=== PATIENT | female | born 1985 | race African-American/Black ===

== ENCOUNTER 2016-10-16 05:34 | Emergency (ER) | payer OTHER ==
[~2016-10-16 05:34] MED LIST: HYDR-3533 PO; IBUP600T26 PO
[2016-10-16 05:35] VITALS: BP 118/64; PULSE 92; RESP 16; TEMP 98.2; O2SAT 99
[2016-10-16] MEDS ORDERED: PREN29TA PO (05:56)
[2016-10-16] MEDS ORDERED: THIAMINE INJ 100 MG in SODIUM CHLORIDE 0.9% INJ 100 ML IV ONE (06:00)
[2016-10-16] MEDS ORDERED: ONDANSETRON HCL 4 MG/2 ML VIAL IV ONE (06:00)
[2016-10-16] MEDS ORDERED: DIPHENOXYLATE/ATROPINE 2.5 MG/0.025 MG TAB PO ONE (06:00)
[2016-10-16] MEDS ORDERED: SODIUM CHLOR 0.9% 1000 ML INJ 1,000 ML IV ONE ×2 (06:00)
--- NOTE | 2016-10-16 06:09 | PD ---
HPI Chief Complaint: GI Complaint Time Seen by Provider: 05:43 Travel History International Travel<30 days: No Contact w/Intl Traveler<30days: No History of Present Illness HPI So 31-year-old woman, 15 weeks , presents to the emergency department complaining of nausea diarrhea and lightheadedness. She states that she's had trouble with nausea and vomiting throughout her . Over the past 2 days she started to develop copious watery diarrhea, 4-5 episodes through the night. She is a little bit of lower abdominal cramping yesterday, improved today. No definite sick contacts. She did take a Z-Donnie for URI symptoms couple months ago. No report more recent antibiotic exposures. No other healthcare exposures. She is 5 para 4, 0, 0, 4. She had trouble with nausea and vomiting throughout all of her pregnancies. No recent unusual food. No travel. Review systems positive for feeling weak and lightheaded at times. No other complaints. History Past Medical History Medical History: Denies Significant Hx Tetanus Vaccination: Unknown Influenza Vaccination: No PNEUMOCCOCAL Vaccine (Year): 2 LMP: 07/03/2017 : 6 Para: 2 Dilation and Curettage (D&C): Yes Social History Alcohol Use: No Tobacco Use: No Allergies-Medications (Allergen,Severity, Reaction): Coded Allergies: Ambien (Verified Allergy, Severe, Anaphylaxis, 10/16/16) Tramadol (Verified Allergy, Severe, Anaphylaxis, 10/16/16) Reported Meds & Prescriptions Reported Meds & Active Scripts Active Reported Plus Iron 29-1 mg ( Vit-Iron Carbonyl) 1 Tab Tab 1 Tab PO DAILY Review of Systems Except as stated in HPI: all other systems reviewed are Neg Physical Exam Narrative GENERAL: Well-appearing 31 year-old woman, no acute distress. No active vomiting. SKIN: Warm and dry. HEAD: Atraumatic. Normocephalic. CARDIOVASCULAR: Regular rate and rhythm. No murmur appreciated. RESPIRATORY: No accessory muscle use. Clear to auscultation. Breath sounds equal bilaterally. GASTROINTESTINAL: Abdomen soft, non-tender, nondistended. Hepatic and splenic margins not palpable. MUSCULOSKELETAL: No obvious deformities. No clubbing. No cyanosis. No edema. NEUROLOGICAL: Awake and alert. No obvious cranial nerve deficits. Motor grossly within normal limits. Normal speech. PSYCHIATRIC: Appropriate mood and affect; insight and judgment normal. Data Data Last Documented VS Vital Signs Date Time Temp Pulse Resp B/P Pulse Ox O2 Delivery O2 Flow Rate FiO2 10/16/16 05:35 98.2 92 16 118/64 99 Room Air Orders Complete Blood Count With Diff (10/16/16 05:50) Comprehensive Metabolic Panel (10/16/16 05:50) Iv Access Insert/Monitor (10/16/16 05:50) Ed Poc Ultrasound (10/16/16 ) Sodium Chlor 0.9% 1000 Ml Inj (Ns 1000 M (10/16/16 06:00) Sodium Chlor 0.9% 1000 Ml Inj (Ns 1000 M (10/16/16 06:00) Ondansetron Inj (Zofran Inj) (10/16/16 06:00) Thiamine Inj (Thiamine Inj) (10/16/16 06:00) Diphenoxylate/Atropine Tab (Lomotil Tab) (10/16/16 06:00) Labs Laboratory Tests Test 10/16/16 06:05 White Blood Count 7.7 TH/MM3 Red Blood Count 3.71 MIL/MM3 Hemoglobin 11.4 GM/DL Hematocrit 33.1 % Mean Corpuscular Volume 89.2 FL Mean Corpuscular Hemoglobin 30.7 PG Mean Corpuscular Hemoglobin 34.4 % Concent Red Cell Distribution Width 12.6 % Platelet Count 209 TH/MM3 Mean Platelet Volume 7.7 FL Neutrophils (%) (Auto) 64.7 % Lymphocytes (%) (Auto) 24.6 % Monocytes (%) (Auto) 6.8 % Eosinophils (%) (Auto) 3.3 % Basophils (%) (Auto) 0.6 % Neutrophils # (Auto) 5.0 TH/MM3 Lymphocytes # (Auto) 1.9 TH/MM3 Monocytes # (Auto) 0.5 TH/MM3 Eosinophils # (Auto) 0.3 TH/MM3 Basophils # (Auto) 0.0 TH/MM3 CBC Comment DIFF FINAL Differential Comment Sodium Level 139 MEQ/L Potassium Level 3.2 MEQ/L Chloride Level 104 MEQ/L Carbon Dioxide Level 26.9 MEQ/L Anion Gap 8 MEQ/L Blood Urea Nitrogen 5 MG/DL Creatinine 0.59 MG/DL Estimat Glomerular Filtration 142 ML/MIN Rate Random Glucose 93 MG/DL Calcium Level 8.1 MG/DL Total Bilirubin 0.2 MG/DL Aspartate Amino Transf 9 U/L (AST/SGOT) Alanine Aminotransferase 15 U/L (ALT/SGPT) Alkaline Phosphatase 45 U/L Total Protein 6.7 GM/DL Albumin 3.0 GM/DL [facility] Medical Decision Making Medical Screen Exam Complete: Yes Emergency Medical Condition: Yes Interpretation(s) LABS: CBC is unremarkable, mild anemia. CMP is generally unremarkable. Differential Diagnosis Dehydration, diarrhea, vomiting, cramping, other Narrative Course Medical decision making 30 year-old woman with nausea vomiting of , could've by now watery diarrhea. No definite sick contacts. No significant risk factors for C. difficile. Patient looks otherwise well. We'll give her a dose of Lomotil here. She is asking for prescription for Phenergan. She had been taking Reglan with feels like it's not helping her. We'll give her IV fluid rehydration, check labs. Procedures Procedure Narrative Point of care ultrasound: Focus transabdominal ultrasound performed by me for the purpose of evaluating for intrauterine . Mcdermott intrauterine was identified. Approximately 15 weeks by biparietal diameter. Good heart movement. Good motion. heart rate about 148. Diagnosis Primary Impression: Nausea & vomiting Qualified Code: R11.2 - Non-intractable vomiting with nausea, unspecified vomiting type Additional Impression: Diarrhea Qualified Code: R19.7 - Diarrhea, unspecified type Patient Instructions: General Instructions Additional Instructions: Use promethazine as needed for nausea or vomiting. Take Lomotil if needed for watery diarrhea. Follow-up with your fire pilot in the next 2-3 days. Return to the emergency department for any worsening belly pain, fevers, bloody diarrhea, worsening lightheadedness or dizziness, or any other new or worsening symptoms. Med/Other Pt SpecificInfo: Prescription(s) given Scripts Diphenoxylate-Atropine (Lomotil)2.5-0.025 Mg Tab1 Tab PO Q6H PRN (DIARRHEA) #6 TAB Ref 0 Prov:Hasmukh Noel MD 10/16/16 Promethazine (Phenergan)25 Mg Tab25 Mg PO Q6H PRN (Nausea/Vomiting) #12 TAB Ref 0 Prov:Hasmukh Noel MD 10/16/16 Disposition: 01 DISCHARGE HOME Condition: Stable Hasmukh Noel MD Oct 16, 2016 06:09
[2016-10-16 06:14] LABS: BASOPHIL % 0.6 % (0.0-2.0); EOSINOPHIL # 0.3 TH/MM3 (0-0.4); EOSINOPHIL % 3.3 % (0.0-4.0); HEMATOCRIT 33.1 % (35.0-46.0); HEMO FLAGS DIFF FINAL; LYMPH % 24.6 % (9.0-44.0); LYMPHOCYTE # 1.9 TH/MM3 (1.0-4.8); MEAN CELL VOLUME 89.2 FL (80.0-100.0); MEAN CORPUSCULAR HEMOGLOBIN 30.7 PG (27.0-34.0); MEAN CORPUSCULAR HGB CONC 34.4 % (32.0-36.0); MONO % 6.8 % (0.0-8.0); NEUT % 64.7 % (16.0-70.0); PLATELET COUNT 209 TH/MM3 (150-450); RED BLOOD COUNT 3.71 MIL/MM3 (4.00-5.30); RED CELL DISTRIBUTION WIDTH 12.6 % (11.6-17.2); WHITE BLOOD COUNT 7.7 TH/MM3 (4.0-11.0)
[2016-10-16 06:39] LABS: ANION GAP 8 MEQ/L (5-15); AST (GOT) 9 U/L (15-37); BICARBONATE 26.9 MEQ/L (21.0-32.0); BLOOD UREA NITROGEN 5 MG/DL (7-18); CHLORIDE 104 MEQ/L (98-107); GLOMERULAR FILTRATION RATE 142 ML/MIN (>89); POTASSIUM 3.2 MEQ/L (3.5-5.1); SODIUM (NA) 139 MEQ/L (136-145)
[2016-10-16 06:42] LABS: ALKALINE PHOSPHATASE 45 U/L (45-117); ALT (GPT) 15 U/L (10-53); TOTAL BILIRUBIN ADULT 0.2 MG/DL (0.2-1.0)
[2016-10-16] MEDS ORDERED: PROM25TA5 PO (06:47)
[2016-10-16] MEDS ORDERED: LOMO2.5T PO (06:47)
[2016-10-29] MEDS ORDERED: MICO1CRE2 VAGINAL (15:38)
[2016-11-26] MEDS ORDERED: PREN1PAK2 PO (09:00)
== END 2016-10-16 07:02 | disposition home or self-care (01) ==
LOC: NEPE 05:34
DX: O21.9 Vomiting of pregnancy, unspecified (principal); O26.892 Other specified pregnancy related conditions, second trimester; R19.7 Diarrhea, unspecified; R42 Dizziness and giddiness; Z3A.15 15 weeks gestation of pregnancy
CPT/HCPCS: 80053; 85025; 96374; 96375; 99284; J2405; J3411; J7030

== ENCOUNTER → 2016-11-13 | Outpatient (CLI) | payer OTHER ==
[~2016-11-13] MED LIST changes: +BENZ100 PO; -HYDR-3533 PO; -IBUP600T26 PO; +LOMO2.5T PO; +MICO1CRE2 VAGINAL; +PREN1PAK2 PO; +PREN29TA PO; +PROM25TA5 PO; +ZITHTAB PO
== END ==
LOC: HPND 08:29
PROVIDERS: ATTEND Obstetrics & Gynecology
DX: O09.292 Supervision of pregnancy with other poor reproductive or obstetric history, second trimester (principal); O98.512 Other viral diseases complicating pregnancy, second trimester; O99.012 Anemia complicating pregnancy, second trimester; O09.32 Supervision of pregnancy with insufficient antenatal care, second trimester
CPT/HCPCS: 76811

== ENCOUNTER 2016-11-22 17:31 | Emergency (ER) | payer OTHER ==
[~2016-11-22] VITALS: Ht 165.1 cm; Wt 67.0 kg
[~2016-11-22 17:31] MED LIST changes: -BENZ100 PO; -PREN1PAK2 PO; -ZITHTAB PO
[2016-11-22 17:34] VITALS: BP 111/66; PULSE 92; RESP 16; TEMP 98.8; O2SAT 98
[2016-11-22] MEDS ORDERED: ZITHTAB PO (17:48)
[2016-11-22] MEDS ORDERED: BENZ100 PO (17:48)
--- NOTE | 2016-11-22 17:48 | PD ---
HPI . congestion x 2 days Chief Complaint: Cold / Flu Symptoms Time Seen by Provider: 17:41 Travel History International Travel<30 days: No Contact w/Intl Traveler<30days: No Traveled to known affect area: No History of Present Illness HPI 31-year-old female with no significant past medical history here with complaints of cough and congestion for 2 days. Patient tells me that her head feels full and she has facial pressure. She also complains of a dry cough. It is more common at night. She denies any fever or chills. She denies any sick contacts. Her primary care provider is Dr. Middleton. She is allergic to Ambien and tramadol. PFSH Past Medical History Blood Disorders: No Anxiety: No Depression: No Cancer: No Cardiovascular Problems: No Diabetes: No Diminished Hearing: No Endocrine: No Glaucoma: No Genitourinary: No Hepatitis: No Hiatal Hernia: No Hypertension: No Immune Disorder: No Musculoskeletal: No Neurologic: No Psychiatric: No Reproductive: Yes (MISCARRIAGE 2007) Respiratory: No Thyroid Disease: No PNEUMOCCOCAL Vaccine (Year): 2 : 6 Para: 2 Miscarriage: 2 : 2 Dilation and Curettage (D&C): Yes Past Surgical History Abdominal Surgery: No AICD: No Cardiac Surgery: No Ear Surgery: No Endocrine Surgery: No Eye Surgery: No Genitourinary Surgery: No Gynecologic Surgery: Yes (D&C X2 ) Joint Replacement: No Oral Surgery: No Pacemaker: No Thoracic Surgery: No Other Surgery: Yes Social History Alcohol Use: No Tobacco Use: No Substance Use: No Allergies-Medications (Allergen,Severity, Reaction): Coded Allergies: Ambien (Verified Allergy, Severe, Anaphylaxis, 11/22/16) Tramadol (Verified Allergy, Severe, Anaphylaxis, 11/22/16) Reported Meds & Prescriptions Reported Meds & Active Scripts Active Tessalon Perles (Benzonatate) 100 Mg Cap 100 Mg PO TID PRN Zithromax Z-Donnie (Azithromycin) 250 Mg Dspk 250 Mg PO DIRECTED 500 MG (2 tabs) day 1, then 1 tab days 2-5. Review of Systems General / Constitutional: No: Fever Eyes: No: Visual changes HENT: Positive: Congestion, No: Headaches Cardiovascular: No: Chest Pain or Discomfort Respiratory: Positive: Cough, No: Shortness of Breath Gastrointestinal: No: Abdominal Pain Genitourinary: No: Dysuria Musculoskeletal: No: Pain Skin: No Rash Neurologic: No: Weakness Psychiatric: No: Depression Endocrine: No: Polydipsia Hematologic/Lymphatic: No: Easy Bruising Physical Exam Narrative GENERAL: AAO x 3, no acute distress, Well-nourished, well-developed patient. SKIN: Warm and dry. No visible rashes or bruising. HEAD: Normocephalic and atraumatic. EYES: No scleral icterus. No injection or drainage. ENT: No nasal drainage noted. Mucous membranes pink. Airway patent. Frontal and maxillary sinus tenderness. Moderate postnasal drip. NECK: Supple, trachea midline. No JVD. CARDIOVASCULAR: Regular rate and rhythm without murmurs, gallops, or rubs. RESPIRATORY: Breath sounds equal bilaterally. No accessory muscle use. No rhonchi or rales. GASTROINTESTINAL: Abdomen soft, non-tender, nondistended. EXTREMITIES: No cyanosis or edema. BACK: Nontender without obvious deformity. No CVA tenderness. PSYCH: AAO x 3, normal affect. Data Data Last Documented VS Vital Signs Date Time Temp Pulse Resp B/P Pulse Ox O2 Delivery O2 Flow Rate FiO2 11/22/16 17:34 98.8 92 16 111/66 98 MDM Medical Decision Making Medical Screen Exam Complete: Yes Emergency Medical Condition: Yes Differential Diagnosis Acute sinusitis, acute bronchitis, less likely pneumonia Narrative Course 31-year-old female with no significant past medical history here with complaints of cough and congestion for 2 days. Patient tells me that her head feels full and she has facial pressure. She also complains of a dry cough. It is more common at night. She denies any fever or chills. She denies any sick contacts. Her primary care provider is Dr. Middleton. She is allergic to Ambien and tramadol. Patient seen and examined. Her symptoms and exam findings are consistent with acute sinusitis. I have discussed this with her. Advised that we will discharge her home with a Z-Donnie. She was advised to follow -up with primary care provider. I will also provide her with Shashi Swann for coughing. Patient verbalized understanding of instructions, questions were answered, and thanked me for their care. I advised them if their condition worsens, please return to the nearest emergency room for further care. Diagnosis Primary Impression: Acute sinusitis Qualified Code: J01.10 - Acute frontal sinusitis, recurrence not specified Patient Instructions: General Instructions, Sinusitis (ED) Additional Instructions: Please return to emergency department if your symptoms return or worsen. Follow up with your primary care provider. Take medications as prescribed. You can also use Claritin, Zyrtec or Rakel. Pick one and take for 7 days. Med/Other Pt SpecificInfo: Prescription(s) given Scripts Benzonatate (Tessalon Perles)100 Mg [id number] Mg PO TID PRN (COUGH) #20 CAP Ref 0 Prov:Frankie Valdez MD 11/22/16 Azithromycin (Zithromax Z-Donnie)250 Mg [id number] Mg PO DIRECTED #1 DSPK Ref 0 500 MG (2 tabs) day 1, then 1 tab days 2-5. Prov:Frankie Valdez MD 11/22/16 Disposition: 01 DISCHARGE HOME Condition: Stable Kiesha Coon Nov 22, 2016 17:48
[2016-11-26] MEDS ORDERED: PREN1PAK2 PO (09:00)
== END 2016-11-22 17:55 | disposition home or self-care (01) ==
LOC: PHEFT 17:31
DX: J01.90 Acute sinusitis, unspecified (principal)
CPT/HCPCS: 99283

== ENCOUNTER 2017-01-12 14:26 | Emergency (ER) | payer OTHER ==
[~2017-01-12] VITALS: Ht 165.1 cm; Wt 71.0 kg
[~2017-01-12 14:26] MED LIST changes: -LOMO2.5T PO; -MICO1CRE2 VAGINAL; +PREN1PAK2 PO; -PREN29TA PO; -PROM25TA5 PO
[2017-01-12 14:31] VITALS: BP 107/67; PULSE 96; RESP 17; TEMP 97.8; O2SAT 100
--- NOTE | 2017-01-12 15:06 | PD ---
Physical Exam Time Seen by Provider: 15:02 Narrative 31yo F c/o heart palpitations w/ SOB over the weekend and this morning. Feeling of heart racing. Is 27 weeks and c/o abd cramping at night and some sort of spasming this morning. Denies fever, vomiting. Nanda chest pain. Patient stable. Patient seen in triage. Awaiting bed placement. Data Data Last Documented VS Vital Signs Date Time Temp Pulse Resp B/P Pulse Ox O2 Delivery O2 Flow Rate FiO2 01/12/17 14:31 97.8 96 17 107/67 100 MDM Supervised Visit with TIFFANIE: Ce Lacey Jan 12, 2017 15:06
[2017-01-12] MEDS ORDERED: SODIUM CHLORIDE 0.9% FLUSH 10 ML FLUSH IVF PRN (15:45)
[2017-01-12 15:46] VITALS: BP 107/57; PULSE 95; RESP 16; O2SAT 97
[2017-01-12 15:48] VITALS: BP 110/58; PULSE 86; RESP 16
[2017-01-12 15:59] VITALS: O2SAT 97
--- NOTE | 2017-01-12 16:09 | PD ---
HPI Chief Complaint: Cardiac Complaint Time Seen by Provider: 15:30 Travel History International Travel<30 days: No Contact w/Intl Traveler<30days: No Traveled to known affect area: No History of Present Illness HPI Patient is a 31-year-old female presenting to emergency for evaluation of palpitations and shortness of breath. Patient stated symptoms started on Thursday , there was no exacerbating activity. Patient states it resolves on its own but has been happening frequently over Thursday, Thursday, Thursday. She states it' s a little bit better today. She states that she feels a palpitation she has shortness of breath and it's hard to catch her breath. Patient is currently residing in rehabilitation, she is 27 weeks . She had a previous opioid addiction, she has been clean for 45 days. She denies any other complaints, no nausea, no vomiting, no vaginal bleeding or discharge. No abdominal pain but she has had sporadic cramping at night. PFSH Past Medical History Medical History: Denies Significant Hx Blood Disorders: No Anxiety: No Depression: No Cancer: No Cardiovascular Problems: No Diabetes: No Diminished Hearing: No Endocrine: No Gastrointestinal Disorders: No Glaucoma: No Genitourinary: No Hepatitis: No Hiatal Hernia: No Hypertension: No Immune Disorder: No Implanted Vascular Access Dvce: No Musculoskeletal: No Neurologic: No Psychiatric: No Reproductive: Yes (MISCARRIAGE 2007) Respiratory: No Thyroid Disease: No PNEUMOCCOCAL Vaccine (Year): 2 ?: LMP: 07/03/2016 : 7 Para: 5 Miscarriage: 2 : 2 Ectopic : Yes Dilation and Curettage (D&C): Yes Past Surgical History Surgical History: No Previous Surgery Abdominal Surgery: No AICD: No Cardiac Surgery: No Ear Surgery: No Endocrine Surgery: No Eye Surgery: No Genitourinary Surgery: No Gynecologic Surgery: Yes (D&C X2 ) Joint Replacement: No Neurologic Surgery: No Oral Surgery: No Pacemaker: No Thoracic Surgery: No Other Surgery: No Social History Alcohol Use: No Tobacco Use: No Substance Use: Yes (last narcs 11/23/16) Allergies-Medications (Allergen,Severity, Reaction): Coded Allergies: Ambien (Verified Allergy, Severe, Anaphylaxis, 12/24/16) Tramadol (Verified Allergy, Severe, Anaphylaxis, 12/24/16) Reported Meds & Prescriptions Reported Meds & Active Scripts Active Citranatal Dha Pack ( W/O Vit A W/ Fe Carbo Pack) 27-1 & 250 Mg Pack 1 Ea PO DAILY 30 day supply. Review of Systems Except as stated in HPI: all other systems reviewed are Neg Cardiovascular: Positive: Palpitations Respiratory: Positive: Shortness of Breath Physical Exam Narrative GENERAL: Developed, well-nourished, alert female. Resting comfortably in no acute distress. SKIN: Focused skin assessment warm/dry. HEAD: Atraumatic. Normocephalic. EYES: Pupils equal and round. No scleral icterus. No injection or drainage. ENT: No nasal bleeding or discharge. Mucous membranes pink and moist. NECK: Trachea midline. No JVD. CARDIOVASCULAR: Regular rate and rhythm. No murmur appreciated. RESPIRATORY: No accessory muscle use. Clear to auscultation. Breath sounds equal bilaterally. GASTROINTESTINAL: Abdomen soft, non-tender, nondistended. Hepatic and splenic margins not palpable. MUSCULOSKELETAL: No obvious deformities. No clubbing. No cyanosis. No edema. NEUROLOGICAL: Awake and alert. No obvious cranial nerve deficits. Motor grossly within normal limits. Normal speech. PSYCHIATRIC: Appropriate mood and affect; insight and judgment normal. Data Data Last Documented VS Vital Signs Date Time Temp Pulse Resp B/P Pulse Ox O2 Delivery O2 Flow Rate FiO2 01/12/17 15:59 95 96 Room Air 01/12/17 15:48 16 110/58 01/12/17 14:31 97.8 Orders Electrocardiogram (01/12/17 ) Ckmb (Isoenzyme) Profile (01/12/17 15:41) Complete Blood Count With Diff (01/12/17 15:41) Comprehensive Metabolic Panel (01/12/17 15:41) Magnesium (Mg) (01/12/17 15:41) Troponin I (01/12/17 15:41) Ecg Monitoring (01/12/17 15:41) Bilateral Bp Monitoring (01/12/17 15:41) Iv Access Insert/Monitor (01/12/17 15:41) Oximetry (01/12/17 15:41) Oxygen Administration (01/12/17 15:41) Sodium Chloride 0.9% Flush (Ns Flush) (01/12/17 15:45) Thyroid Stimulating Hormone (01/12/17 15:41) Labs Laboratory Tests Test 01/12/17 15:55 White Blood Count 9.5 TH/MM3 Red Blood Count 3.71 MIL/MM3 Hemoglobin 10.9 GM/DL Hematocrit 33.9 % Mean Corpuscular Volume 91.2 FL Mean Corpuscular Hemoglobin 29.3 PG Mean Corpuscular Hemoglobin 32.2 % Concent Red Cell Distribution Width 13.1 % Platelet Count 230 TH/MM3 Mean Platelet Volume 8.1 FL Neutrophils (%) (Auto) 65.9 % Lymphocytes (%) (Auto) 21.6 % Monocytes (%) (Auto) 8.8 % Eosinophils (%) (Auto) 2.8 % Basophils (%) (Auto) 0.9 % Neutrophils # (Auto) 6.2 TH/MM3 Lymphocytes # (Auto) 2.1 TH/MM3 Monocytes # (Auto) 0.8 TH/MM3 Eosinophils # (Auto) 0.3 TH/MM3 Basophils # (Auto) 0.1 TH/MM3 CBC Comment DIFF FINAL Differential Comment Sodium Level 138 MEQ/L Potassium Level 3.7 MEQ/L Chloride Level 103 MEQ/L Carbon Dioxide Level 25.8 MEQ/L Anion Gap 9 MEQ/L Blood Urea Nitrogen 6 MG/DL Creatinine 0.70 MG/DL Estimat Glomerular Filtration 117 ML/MIN Rate Random Glucose 85 MG/DL Calcium Level 8.6 MG/DL Magnesium Level 1.7 MG/DL Total Bilirubin 0.2 MG/DL Aspartate Amino Transf 13 U/L (AST/SGOT) Alanine Aminotransferase 15 U/L (ALT/SGPT) Alkaline Phosphatase 70 U/L Total Creatine Kinase 38 U/L Troponin I LESS THAN 0.02 NG/ML Total Protein 7.0 GM/DL Albumin 2.8 GM/DL Thyroid Stimulating Hormone 1.290 uIU/ML [address] [place] [address] Medical Decision Making Medical Screen Exam Complete: Yes Emergency Medical Condition: Yes Interpretation(s) Vital Signs Date Time Temp Pulse Resp B/P Pulse Ox O2 Delivery O2 Flow Rate FiO2 01/12/17 15:59 96 01/12/17 15:59 97 Room Air 01/12/17 15:48 86 16 110/58 01/12/17 15:46 95 16 107/57 97 Room Air 01/12/17 15:43 98 Room Air 01/12/17 14:31 97.8 96 17 107/67 100 Differential Diagnosis Electrolyte abdomen only versus cardiac arrhythmia versus thyroid disorder versus other Narrative Course Patient is a 31-year-old female presenting to emergency for evaluation of palpitations. Patient is a 27 weeks , she has no related complaints. EKG shows normal sinus rhythm with a rate of 95, labs ordered and pending. Vital signs are currently stable CBC with hemoglobin of 10.9 and 33.9 otherwise unremarkable. Chemistries unremarkable, troponin is less than 0.02, TSH is 1.29. Patient has had no further episodes of palpitations in the emergency department. EKG shows normal sinus rhythm with a rate of 95, this was reviewed by my attending physician. Patient was encouraged to follow up with primary doctor. She was encouraged return to emergency department immediately if symptoms recurred, additionally patient was encouraged to follow-up with a lower in supervisor for possible Holter monitor if needed. Patient verbalized understanding of these instructions. Patient stable for discharge. Diagnosis Primary Impression: Palpitations Referrals: Respiratory Director [facility] Supervisor Primary Care Physician Patient Instructions: General Instructions, Palpitations (ED) Additional Instructions: Follow-up with your consumer insights intern Follow-up with a lower in supervisor Return to emergency department mainly for any new or worsening symptoms Take adequate fluid intake Med/Other Pt SpecificInfo: No Change to Meds Disposition: 01 DISCHARGE HOME Condition: Stable Greta Oropeza Jan 12, 2017 16:09
[2017-01-12 16:24] LABS: AUTOMATED NEUTROPHIL # 6.2 TH/MM3 (1.8-7.7); BASOPHIL # 0.1 TH/MM3 (0-0.2); BASOPHIL % 0.9 % (0.0-2.0); EOSINOPHIL # 0.3 TH/MM3 (0-0.4); EOSINOPHIL % 2.8 % (0.0-4.0); HEMATOCRIT 33.9 % (35.0-46.0); HEMO FLAGS DIFF FINAL; LYMPH % 21.6 % (9.0-44.0); LYMPHOCYTE # 2.1 TH/MM3 (1.0-4.8); MEAN CELL VOLUME 91.2 FL (80.0-100.0); MEAN CORPUSCULAR HEMOGLOBIN 29.3 PG (27.0-34.0); MEAN CORPUSCULAR HGB CONC 32.2 % (32.0-36.0); MONO % 8.8 % (0.0-8.0); NEUT % 65.9 % (16.0-70.0); PLATELET COUNT 230 TH/MM3 (150-450); RED BLOOD COUNT 3.71 MIL/MM3 (4.00-5.30); RED CELL DISTRIBUTION WIDTH 13.1 % (11.6-17.2); WHITE BLOOD COUNT 9.5 TH/MM3 (4.0-11.0)
[2017-01-12 16:42] LABS: ANION GAP 9 MEQ/L (5-15); AST (GOT) 13 U/L (15-37); BICARBONATE 25.8 MEQ/L (21.0-32.0); BLOOD UREA NITROGEN 6 MG/DL (7-18); CHLORIDE 103 MEQ/L (98-107); GLOMERULAR FILTRATION RATE 117 ML/MIN (>89); MAGNESIUM 1.7 MG/DL (1.5-2.5); POTASSIUM 3.7 MEQ/L (3.5-5.1); SODIUM (NA) 138 MEQ/L (136-145)
--- NOTE | 2017-01-12 16:46 | PD ---
Data Data Last Documented VS Vital Signs Date Time Temp Pulse Resp B/P Pulse Ox O2 Delivery O2 Flow Rate FiO2 01/12/17 15:59 95 96 Room Air 01/12/17 15:48 16 110/58 01/12/17 14:31 97.8 Orders Electrocardiogram (01/12/17 ) Ckmb (Isoenzyme) Profile (01/12/17 15:41) Complete Blood Count With Diff (01/12/17 15:41) Comprehensive Metabolic Panel (01/12/17 15:41) Magnesium (Mg) (01/12/17 15:41) Troponin I (01/12/17 15:41) Ecg Monitoring (01/12/17 15:41) Bilateral Bp Monitoring (01/12/17 15:41) Iv Access Insert/Monitor (01/12/17 15:41) Oximetry (01/12/17 15:41) Oxygen Administration (01/12/17 15:41) Sodium Chloride 0.9% Flush (Ns Flush) (01/12/17 15:45) Thyroid Stimulating Hormone (01/12/17 15:41) Labs Laboratory Tests Test 01/12/17 15:55 White Blood Count 9.5 TH/MM3 Red Blood Count 3.71 MIL/MM3 Hemoglobin 10.9 GM/DL Hematocrit 33.9 % Mean Corpuscular Volume 91.2 FL Mean Corpuscular Hemoglobin 29.3 PG Mean Corpuscular Hemoglobin 32.2 % Concent Red Cell Distribution Width 13.1 % Platelet Count 230 TH/MM3 Mean Platelet Volume 8.1 FL Neutrophils (%) (Auto) 65.9 % Lymphocytes (%) (Auto) 21.6 % Monocytes (%) (Auto) 8.8 % Eosinophils (%) (Auto) 2.8 % Basophils (%) (Auto) 0.9 % Neutrophils # (Auto) 6.2 TH/MM3 Lymphocytes # (Auto) 2.1 TH/MM3 Monocytes # (Auto) 0.8 TH/MM3 Eosinophils # (Auto) 0.3 TH/MM3 Basophils # (Auto) 0.1 TH/MM3 CBC Comment DIFF FINAL Differential Comment Sodium Level 138 MEQ/L Potassium Level 3.7 MEQ/L Chloride Level 103 MEQ/L Carbon Dioxide Level 25.8 MEQ/L Anion Gap 9 MEQ/L Blood Urea Nitrogen 6 MG/DL Creatinine 0.70 MG/DL Estimat Glomerular Filtration 117 ML/MIN Rate Random Glucose 85 MG/DL Calcium Level 8.6 MG/DL Magnesium Level 1.7 MG/DL Aspartate Amino Transf 13 U/L (AST/SGOT) Albumin 2.8 GM/DL [facility] Supervised Visit with TIFFANIE: Yes Narrative Course The history, exam, and medical decision-making in the associated mid-level provider note were completed with my assistance. I reviewed and agree with the findings presented. I attest that I had a [id number] encounter with the patient on the same day, and personally performed and documented my assessment and findings in the medical record. *My assessment and Findings: So 37-year-old woman, 27 weeks , presents with intermittent episodes of palpitations. She is currently in recovery house for opiate addiction. She looks well. States in between the episodes she feels much better. She is also shortness of breath with the episodes. She's never really had it before. Is her fifth . is otherwise going well. She is no evidence of DVT. I don't see any evidence strongly suggestive of PE. She has no tachypnea , or respiratory distress now. At this point recommended supportive treatment, and outpatient follow-up. Hasmukh Noel MD Jan 12, 2017 16:46
[2017-01-12 16:58] LABS: ALKALINE PHOSPHATASE 70 U/L (45-117); ALT (GPT) 15 U/L (10-53); TOTAL BILIRUBIN ADULT 0.2 MG/DL (0.2-1.0)
[2017-01-12 17:07] LABS: CREATINE KINASE 38 U/L (26-192)
--- NOTE | 2017-01-13 08:59 | EKG ---
Date Performed: 01/12/2017 Time Performed: 15:15:33 PTAGE: 31 years EKG: Sinus rhythm NORMAL ECG PREVIOUS TRACING : 06/14/2006 17.46 No significant change from previous tracing noted. DOCTOR: Umair Mcduffie Interpretating Date/Time 01/13/2017 08:57:50
== END 2017-01-12 18:19 | disposition home or self-care (01) ==
LOC: NEPD 14:26
DX: O99.89 Other specified diseases and conditions complicating pregnancy, childbirth and the puerperium (principal); R00.2 Palpitations; R06.02 Shortness of breath; Z3A.27 27 weeks gestation of pregnancy
CPT/HCPCS: 80053; 82550; 83735; 84443; 84484; 85025; 93005

== ENCOUNTER → 2017-01-26 | Outpatient (CLI) | payer OTHER ==
--- NOTE | 2017-01-26 11:37 | EC ---
Study Study Date:01/26/2017 STUDY CONCLUSIONS SUMMARY - Left ventricle: The cavity size was normal. Wall thickness was normal. Systolic function was normal. The estimated ejection fraction was in the range of 55% to 60%. Wall motion was normal; there were no regional wall motion abnormalities. - Tricuspid valve: Mild regurgitation. - Pulmonary arteries: PA peak pressure: 42mm Hg (S). If LV function is below 40, please consider prescribing an ACEI or ARB or document rationale for non-use. PROCEDURE DATA STUDY STATUS: Elective. Procedure: Transthoracic echocardiography. Image quality was good. Scanning was performed from the parasternal, apical, and subcostal acoustic windows. Study completion: The patient tolerated the procedure well. Transthoracic echocardiography. M-mode, complete 2D, complete spectral Doppler, and color Doppler. Patient status: Inpatient. CARDIAC ANATOMY LEFT VENTRICLE: The cavity size was normal. Wall thickness was normal. Systolic function was normal. The estimated ejection fraction was in the range of 55% to 60%. Wall motion was normal; there were no regional wall motion abnormalities. AORTIC VALVE: Trileaflet; normal thickness leaflets. Doppler: Transvalvular velocity was within the normal range. There was no stenosis. No regurgitation. AORTA: Aortic root: The aortic root was normal in size. MITRAL VALVE: Structurally normal valve. Doppler: Transvalvular velocity was within the normal range. There was no evidence for stenosis. Trace regurgitation. LEFT ATRIUM: The atrium was normal in size. RIGHT VENTRICLE: The cavity size was normal. Wall thickness was normal. PULMONIC VALVE: Doppler: Transvalvular velocity was within the normal range. There was no evidence for stenosis. No regurgitation. TRICUSPID VALVE: Structurally normal valve. Doppler: Transvalvular velocity was within the normal range. Mild regurgitation. PULMONARY ARTERY: The main pulmonary artery was normal-sized. Systolic pressure was within the normal range. RIGHT ATRIUM: The atrium was normal in size. PERICARDIUM: There was no pericardial effusion. SYSTEMIC VEINS: Inferior vena cava: The vessel was normal in size. BASIC MEASUREMENTS ADULT NORMAL Left ventricle LV internal dimension, ED, chordal level, 47.9 mm 43-52 PLAX LV internal dimension, ES, chordal level, 30.4 mm 23-38 PLAX Fractional shortening, chordal level, PLAX 37 % >29 LV posterior wall thickness, ED 8.71 mm IVS/LVPW ratio, ED 1.22 <1.3 Ventricular septum Septal thickness, ED 10.6 mm Aortic valve Leaflet separation 21 mm 15-26 Right ventricle RV internal dimension, ED, PLAX 29.3 mm 19-38 BASIC MEASUREMENTS ADULT NORMAL Aortic valve Leaflet separation 21 mm 15-26 Aorta Root diameter, ED 22 mm 20-37 Left atrium Anterior-posterior dimension, ES 38 mm 19-40 LA/aortic root ratio 1.73 DOPPLER MEASUREMENTS ADULT NORMAL Main pulmonary artery Pressure, S *42 mm Hg =30 Mitral valve Peak E-wave velocity 69.6 cm/s Peak A-wave velocity 62.2 cm/s Peak E/A ratio 1.1 Tricuspid valve Regurgitant peak velocity 284 cm/s Peak RV-RA gradient, S 32 mm Hg Maximal regurgitant velocity 284 cm/s Systemic veins Estimated CVP 10 mm Hg Right ventricle RV pressure, S *42 mm Hg <30 LEGEND: Mean values are shown as u=mean value. Asterisk (*) gomez values outside specified normal range. Prepared and signed by Siddharth Guerra [id number]
--- NOTE | 2017-01-27 16:05 | HM ---
Date Performed: 01/26/2017 Time Performed: 07:40:00 HOOKUP DATE: 01/26/17 07:40:00 AM Mon ANALYSIS START TIME: 01/26/2017 7:45:00 AM ANALYSIS END TIME: 01/27/2017 7:49:00 AM PATIENT AGE: 32 PATIENT HEIGHT PATIENT WEIGHT DRUG LIST PATIENT DIAGNOSIS: arrhythmia TEST NARRATIVE: The patient's average heart rate was 98 BPM. Heart rates greater than 120 B PM were noted 11% of the time. No episodes of bradycardia were noted. No pauses exceeding 2.0 se conds were noted. 472 ventricular ectopics, which represented < 1% of the total beat count, were noted. The highest ventricular ectopic frequency occurred from 02:00 PM to 03:00 PM Mon. During thi s time 162 VE(s) occurred. Ventricular ectopics were observed as 472 isolated beat(s) only. No coup lets or runs were noted. No supraventricular ectopics were noted. No episodes of ST depressio n (defined as -1.0 mm or more) were noted in channel 1. No episodes of ST depression (defined as -1. 0 mm or more) were noted in channel 2. No episodes of ST depression (defined as -1.0 mm or more) wer e noted in channel 3. patient forgot diary at home. (patient stated no symptoms) TEST INTERPRETATION: Minimum HR of 66 and maximum of 148 with an average of 98 beats per minute. There were occasional PVCs. Maximum heart rate at 148 beats per minute was sinus tachycardia. No ras dence of atrial fibrillation. Some runs of sinus tachycardia and sinus arrhythmia consistent with the patient's age. Conclusion: no significant arrhythmia, some runs of sinus tachycardia as noted above . Occasional couplet PVCs and rare single PVCs Signed by : Penny Kinney
== END ==
LOC: HECH 08:21
DX: O99.413 Diseases of the circulatory system complicating pregnancy, third trimester (principal); I07.1 Rheumatic tricuspid insufficiency
CPT/HCPCS: 93225; 93226; 93306

== ENCOUNTER → 2017-02-09 | Outpatient (CLI) | payer OTHER | LOC: HPND 08:59 | PROVIDERS: ATTEND Obstetrics & Gynecology | DX: O36.8930 Maternal care for other specified fetal problems, third trimester, not applicable or unspecified (principal); O99.413 Diseases of the circulatory system complicating pregnancy, third trimester; Z3A.30 30 weeks gestation of pregnancy | CPT/HCPCS: 76816 ==

== ENCOUNTER → 2017-02-10 | Outpatient (CLI) | payer OTHER | LOC: HPND 10:55 | PROVIDERS: ATTEND Obstetrics & Gynecology | DX: O36.8930 Maternal care for other specified fetal problems, third trimester, not applicable or unspecified (principal); Z3A.31 31 weeks gestation of pregnancy | CPT/HCPCS: 76815; 76825; 76827; 93325 ==

== ENCOUNTER → 2017-02-18 | Outpatient (CLI) | payer OTHER | LOC: HPND 08:26 | PROVIDERS: ATTEND Obstetrics & Gynecology | DX: O35.8XX0 Maternal care for other (suspected) fetal abnormality and damage, not applicable or unspecified (principal) | CPT/HCPCS: 76815 ==

== ENCOUNTER → 2017-03-05 | Outpatient (CLI) | payer OTHER | LOC: HPND 09:36 | PROVIDERS: ATTEND Obstetrics & Gynecology | DX: O35.8XX0 Maternal care for other (suspected) fetal abnormality and damage, not applicable or unspecified (principal) | CPT/HCPCS: 76816 ==

== ENCOUNTER → 2017-03-19 | Outpatient (CLI) | payer OTHER | LOC: HPND 08:33 | PROVIDERS: ATTEND Obstetrics & Gynecology | DX: O35.8XX0 Maternal care for other (suspected) fetal abnormality and damage, not applicable or unspecified (principal) | CPT/HCPCS: 76815 ==

== ENCOUNTER 2017-03-31 05:17 | Inpatient (IN) | payer OTHER ==
[2017-03-31] VITALS (7 sets, daily range): BP systolic 88–135; BP diastolic 60–84; PULSE 76–91; RESP 16–18; TEMP 98.6
[~2017-03-31] VITALS: Ht 175.3 cm; Wt 76.2 kg
[2017-03-31] MEDS ORDERED: LACTATED RINGER'S 1000 ML INJ 1,000 ML IV SCH (05:54)
[2017-03-31] MEDS ORDERED: LACTATED RINGER'S 1000 ML INJ 1,000 ML IV PRN (05:54)
--- NOTE | 2017-03-31 05:57 | HHI.HP ---
HPI Chief Complaint Laboring Date Seen: Mar 31, 2017 Time Seen: 06:00 Travel History International Travel<30 Days: No Contact w/Intl Traveler<30Days: No History of Present Illness HPI 32 year old female at 38 weeks 5/7 presenting for laboring. Started feeling contractions @ 1AM which increased in consistency and strength. She presented feeling contractions every 4 minutes and with significant pelvic pressure. [facility] GBS positive. Has had 4 other vaginal deliveries all with epidural. Denied any rupture of fluid or vaginal bleeding. Is having a baby girl and is excited to see her. Para: 4 : 6 History Past Medical History Medical History: Denies Significant Hx Obstetric History Obstetric History 4 Vaginal deliveries Past Surgical History Surgical History: Unable to Obtain Family History Family History: Negative Social History Alcohol Use: No Tobacco Use: No Substance Abuse: No Allergies-Medications (Allergen,Severity, Reaction): Coded Allergies: Ambien (Verified Allergy, Severe, Anaphylaxis, 03/25/17) Tramadol (Verified Allergy, Severe, Anaphylaxis, 03/25/17) Home Meds Active Scripts W/O Vit A W/ Fe Carbo Pack (Citranatal Dha Pack)27-1 & 250 Mg Pack1 Ea PO DAILY #90 BLISTER Ref 0 30 day supply. Prov:Giovanny Zhong MD 11/26/16 Review of Systems General / Constitutional: Weight Gain, No: Fever, Weight Loss, Chills Eyes: No: Diploplia, Blurred Vision, Visual changes HENT: No: Headaches Cardiovascular: No: Chest Pain or Discomfort, Palpitations Respiratory: No: Cough, Short of Breath, Wheezing Gastrointestinal: Abdominal Pain, No: Nausea, Vomiting, Diarrhea Genitourinary: Pelvic Pain, No: Discharge, Vaginal Bleeding Musculoskeletal: Cramping Skin: No Rash Neurologic: No: Weakness, Headache Psychiatric: No: Anxiety, Depression Physical Exam Narrative GENERAL: Well-nourished, well-developed patient. SKIN: Warm and dry. HEAD: Normocephalic and atraumatic. EYES: No scleral icterus. No injection or drainage. ENT: No nasal drainage noted. Mucous membranes pink. Airway patent. NECK: Supple, trachea midline. No JVD. CARDIOVASCULAR: Regular rate and rhythm without murmurs, gallops, or rubs. RESPIRATORY: Breath sounds equal bilaterally. No accessory muscle use. ABDOMEN/GI: Abdomen soft, non-tender, bowel sounds present, no rebound, no guarding Gravid to [38] weeks size Fundal Height: [38] GENITOURINARY: External Genitalia: intact and normal in appearance Cervix: [Soft] Dilatation: [10] Effacement: [100] Station: [0] Presentation: [Vertex] Membranes: [intact] Uterine Contractions: [4 minutes] FHT's: Category: [1] Baseline: [130] Reactive: [up to 150] Variability: [moderate] Decels: [none] EXTREMITIES: No cyanosis or edema. BACK: Nontender without obvious deformity. No CVA tenderness. NEUROLOGICAL: Awake and alert. Motor and sensory grossly within normal limits. Five out of 5 muscle strength in all muscle groups. Normal speech. Data Data Vital Signs Reviewed: Yes Orders Ob (2e) Additional Admit Info (03/31/17 05:41) Admit To Inpatient (03/31/17 ) Code Status (03/31/17 05:54) Vital Signs (Adult) .Per protocol (03/31/17 05:54) Heart (03/31/17 05:54) Amnioinfusion (03/31/17 05:54) Urinary Catheter Management .ONCE (03/31/17 05:54) Diet Npo (03/31/17 Breakfast) Lactated Ringer's 1000 Ml Inj (Lr 1000 M (03/31/17 05:54) Lactated Ringer's 1000 Ml Inj (Lr 1000 M (03/31/17 05:54) Sodium Chlorid 0.9% 500 Ml Inj (Ns 500 M (03/31/17 06:00) Sodium Chlor 0.9% 1000 Ml Inj (Ns 1000 M (03/31/17 06:14) Lidocaine 1% Inj (50 Ml) (Xylocaine 1% I (03/31/17 06:00) Citric Acid-Sodium Citrate Liq (Bicitra (03/31/17 06:00) Ondansetron Inj (Zofran Inj) (03/31/17 06:00) Fentanyl Inj (Fentanyl Inj) (03/31/17 06:00) Fentanyl Inj (Fentanyl Inj) (03/31/17 06:00) Penicillin G Potassium Inj (Pfizerpen-G (03/31/17 06:00) Penicillin G Potassium Inj (Pfizerpen-G (03/31/17 10:00) Complete Blood Count With Diff (03/31/17 05:54) Hold Clot (03/31/17 05:54) Abo/Rh Blood Type (03/31/17 05:54) Urinalysis - C+S If Indicated (03/31/17 05:54) Resp Oxygen Non Rebreathe Mask (03/31/17 ) ^ Epidural / Intrathecal Infus (03/31/17 05:54) Oxytocin 30 Units-500ml Premix (Pitocin (03/31/17 06:00) Lidocaine 1% Inj (50 Ml) (Xylocaine 1% I (03/31/17 06:00) Light Mineral Oil (Muri-Lube Oil) (03/31/17 06:00) Inpatient Certification (03/31/17 ) Specimen To Be Collected PRN (03/31/17 05:54) Assessment/Plan Problem List: (1) (2) Labor without complication Assessment and Plan 32 year old at 38 5/7 currently in labor 1 IUP: Laboring, GBS positive -Category 1 - Contractions @ 4 minutes - Pain control - Expectant management - Penicillin, likely will not be able to administer prior to delivery - Will perform AROM Discharge Planning 2 Days after vaginal delivery Dakotah Adame MD R1 Mar 31, 2017 05:57
[2017-03-31] MEDS ORDERED: SODIUM CHLORID 0.9% 500 ML INJ 500 ML IV PRN (06:00)
[2017-03-31] MEDS ORDERED: OXYTOCIN 30 UNITS-500ML PREMIX 500 ML IV ONE (06:00)
[2017-03-31] MEDS ORDERED: CITRIC ACID-SODIUM CITRATE LIQ 30 ML UDC PO SCH (06:00)
[2017-03-31] MEDS ORDERED: ONDANSETRON HCL 4 MG/2 ML VIAL IV PRN (06:00)
[2017-03-31] MEDS ORDERED: PENICILLIN G POTASSIUM INJ 5,000,000 UNITS in SODIUM CHLORIDE 0.9% INJ 100 ML IV ONE (06:00)
[2017-03-31] MEDS ORDERED: MINERAL OIL 10 ML VIAL TOPICAL PRN (06:00)
[2017-03-31] MEDS ORDERED: LIDOCAINE HCL 1% 50 ML VIAL I-DERMAL PRN (06:00)
[2017-03-31] MEDS ORDERED: LIDOCAINE HCL 1% 50 ML VIAL INFIL PRN (06:00)
[2017-03-31] MEDS ORDERED: LIDOCAINE HCL 1% 50 ML VIAL ONE (06:04)
[2017-03-31] MEDS ORDERED: SODIUM CHLOR 0.9% 1000 ML INJ 1,000 ML IV PRN (06:14)
--- NOTE | 2017-03-31 06:20 | PD.OB.DELI ---
Delivery Date: Mar 31, 2017 Anesthesia: None Episiotomy: None Vaginal Delivery: Normal Presentation: Occiput anterior Nuchal Cord: None Delayed cord clamping (45 sec): Yes : Female, Single One Minute : 9 Five Minute : 9 Weight: 3115 Placenta: Spontaneous delivery Laceration: No lacerations (Dakotah Adame MD R1) Collaborating MD Comments over intact perineum was supervised by me. No complications noted. (Su Duvall MD) Dakotah Adame MD R1 Mar 31, 2017 06:20 Su Duvall MD Mar 31, 2017 07:58
[2017-03-31 06:22] LABS: AUTOMATED NEUTROPHIL # 6.3 TH/MM3 (1.8-7.7); BASOPHIL # 0.1 TH/MM3 (0-0.2); BASOPHIL % 0.7 % (0.0-2.0); EOSINOPHIL # 0.1 TH/MM3 (0-0.4); HEMATOCRIT 36.3 % (35.0-46.0); HEMO FLAGS DIFF FINAL; LYMPH % 23.4 % (9.0-44.0); LYMPHOCYTE # 2.3 TH/MM3 (1.0-4.8); MEAN CELL VOLUME 88.6 FL (80.0-100.0); MEAN CORPUSCULAR HEMOGLOBIN 29.2 PG (27.0-34.0); MONO % 10.7 % (0.0-8.0); NEUT % 64.2 % (16.0-70.0); PLATELET COUNT 237 TH/MM3 (150-450); WHITE BLOOD COUNT 9.8 TH/MM3 (4.0-11.0)
[2017-03-31] MEDS: IBUPROFEN 600 MG TAB PO PRN ×3 (06:29→18:29)
[2017-03-31] MEDS ORDERED: ZOLPIDEM TARTRATE 5 MG TAB PO PRN (06:30)
[2017-03-31] MEDS ORDERED: WITCH HAZEL 50%/GLYCERIN 12.5% 40 PAD JAR TOPICAL PRN (06:30)
[2017-03-31] MEDS ORDERED: oxyCODONE/ACETAMINOPHEN 5 MG/325 MG TAB PO PRN (06:30)
[2017-03-31] MEDS ORDERED: ALUMINUM/MAGNESIUM/SIMETH 30 ML CUP PO PRN (06:30)
[2017-03-31] MEDS ORDERED: BENZOCAINE 20% TOPICAL SPRAY 60 ML CAN TOPICAL PRN (06:30)
[2017-03-31] MEDS ORDERED: SODIUM CHLORIDE 0.9% FLUSH 10 ML FLUSH IV FLUSH PRN (06:30)
[2017-03-31] MEDS ORDERED: ONDANSETRON ODT 4 MG TAB PO PRN (06:30)
[2017-03-31 06:45] LABS: BACTERIA, URINE RARE /hpf; BLOOD, URINE NEG (NEG); COMMENT (UR) CULT NOT INDICATED; CULTURE IF INDICATED CULT NOT INDICATED; GLUCOSE,URINE NEG (NEG); KETONE, URINE NEG (NEG); MUCUS URINE FEW /lpf (OCC); NITRITE,URINE NEG (NEG); SQUAMOUS EPITHELIAL CELL URINE 3 /hpf (0-5); URINE COLOR YELLOW (YELLW/STRAW)
[2017-03-31] MEDS: ACETAMINOPHEN 325 MG TAB PO PRN ×3 (08:01→23:02)
--- NOTE | 2017-03-31 08:22 | HHI.OB ---
Subjective Post Day: 0 Remarks 32 YO female delivered via at 38/5 and is PPD0. Pt has pain being treated with ibuprofen and is meeting immediate goals. Denies CP, SOB , N/V/D. Objective Vitals/I&O Vital Signs Date Time Temp Pulse Resp B/P Pulse Ox O2 Delivery O2 Flow Rate FiO2 03/31/17 06:46 135/84 03/31/17 06:46 78 03/31/17 06:45 18 03/31/17 06:31 86 117/75 03/31/17 06:30 18 03/31/17 06:17 91 119/79 03/31/17 06:17 18 Objective Remarks GENERAL: WDWN female lying in bed her . CARDIOVASCULAR: RRR without murmurs, gallops, or rubs. RESPIRATORY: Breath sounds equal bilaterally with no increased WOB. No accessory muscle use. ABDOMEN/GI: Abdomen soft, non-tender. Fundus: Firm, non-tender at umbilicus. GENITOURINARY: Light to moderate bleeding. EXTREMITIES: No cyanosis or edema, non-tender, without signs of DVT. Medications and IVs Current Medications Medications (Trade) Dose Ordered Sig/Juan Route Start Time Stop Time Status Last Admin Lactated Ringer's 1,000 ml @ 125 mls/hr Q8H IV 03/31/17 05:54 Lactated Ringer's 1,000 ml @ 3,000 mls/hr Q20M PRN IV 03/31/17 05:54 Sodium Chloride 500 ml @ 1,000 mls/hr ONCE PRN IV 03/31/17 06:00 04/01/17 05:59 (NS 1000 ml Inj) 1,000 ml @ 100 mls/hr Q10H PRN IV 03/31/17 06:14 (Zofran Inj) 4 mg Q6H PRN IV 03/31/17 06:00 (fentaNYL INJ) 50 mcg Q1H PRN IV PUSH 03/31/17 06:00 Fentanyl Citrate 100 mcg 100 mcg Q1H PRN IV PUSH 03/31/17 06:00 (Pfizerpen-G Inj/ NS Inj) 100 ml @ 200 mls/hr Q4H IV 03/31/17 10:00 (Muri-Lube Oil) 10 ml UNSCH PRN TOPICAL 03/31/17 06:00 (NS Flush) 2 ml BID IV FLUSH 03/31/17 09:00 (NS Flush) 2 ml UNSCH PRN IV FLUSH 03/31/17 06:30 (Tylenol) 650 mg Q4H PRN PO 03/31/17 06:30 03/31/17 08:01 (Motrin) 600 mg Q6H PRN PO 03/31/17 06:30 03/31/17 06:29 (Percocet 5-325 Mg) 1 tab Q4H PRN PO 03/31/17 06:30 (Percocet 5-325 Mg) 2 tab Q4H PRN PO 03/31/17 06:30 (Americaine 20% Top Spr) 1 spray Q4H PRN TOPICAL 03/31/17 06:30 (Tucks Pads) 1 applic QID PRN TOPICAL 03/31/17 06:30 (Jeanie-Colace) 2 tab Q12H PRN PO 03/31/17 06:30 (M-M-R Ii Inj) 0.5 ml ONCE ONCE SQ 03/31/17 16:00 03/31/17 16:01 (Boostrix Inj) 0.5 ml ONCE ONCE IM 03/31/17 16:00 03/31/17 16:01 (Mag-Al Plus Susp Liq) 15 ml Q8H PRN PO 03/31/17 06:30 (Zofran Odt) 4 mg Q6H PRN PO 03/31/17 06:30 Assessment/Plan Problem List: (1) (2) Labor without complication Assessment and Plan 32 YO delivered via at 38 5/7 and is progressing well on PPD0. - AFVSS - Routine care - Motrin, Tylenol and Percocet PRN pain - Encourage OOB - Pelvic rest x 6 wks - Contraception: TBD - Anticipate D/C 04/02 Dispo: home Discharge Planning 2 Days after vaginal delivery Dimas Juárez MD R1 Mar 31, 2017 08:22
[2017-03-31] MEDS ORDERED: SODIUM CHLORIDE 0.9% FLUSH 10 ML FLUSH IV FLUSH SCH (09:00)
[2017-03-31] MEDS ORDERED: PENICILLIN G POTASSIUM INJ 2,500,000 UNITS in SODIUM CHLORIDE 0.9% INJ 100 ML IV SCH (10:00)
[2017-03-31] MEDS: DOCUSATE SODIUM 50 MG/SENNA 8.6 MG TAB PO PRN (12:42)
[2017-03-31 13:34] LABS: AMPHETAMINE, URINE NEG (NEG); BARBITURATES, URINE NEG (NEG); COCAINE, URINE NEG (NEG)
[2017-03-31] MEDS ORDERED: DIPHTH/TETANUS/ACEL PERTUSSIS (BOOSTER) 0.5 ML VIAL/PFS IM ONE (16:00)
[2017-03-31] MEDS ORDERED: MEASLES, MUMPS, RUBELLA VACCINE 0.5 ML VIAL SQ ONE (16:00)
[2017-03-31] MEDS: oxyCODONE/ACETAMINOPHEN 5 MG/325 MG TAB PO PRN (18:30)
[2017-04-01] MEDS: oxyCODONE/ACETAMINOPHEN 5 MG/325 MG TAB PO PRN ×3 (00:33→21:17)
[2017-04-01] MEDS: IBUPROFEN 600 MG TAB PO PRN ×4 (00:33→16:38)
[2017-04-01] MEDS: ACETAMINOPHEN 325 MG TAB PO PRN ×2 (06:32→16:38)
[2017-04-01 08:18] VITALS: BP 102/66; PULSE 67; RESP 16; TEMP 97.9
--- NOTE | 2017-04-01 08:49 | HHI.OB ---
Subjective Post Day: 1 Remarks 32 YO delivered by at 38/5 weeks and is progressing appropriately on PPD1. AFVSS and pt is meeting goals with ambulating, PO intake, pain control, urine output and flatus but no BM yet. Pt plans to get tubal ligation as outpatient. Objective Vitals/I&O Vital Signs Date Time Temp Pulse Resp B/P Pulse Ox O2 Delivery O2 Flow Rate FiO2 03/31/17 19:30 98.6 76 18 110/61 Objective Remarks GENERAL: WDWN female lying in bed comforting her infant. CARDIOVASCULAR: RRR without murmurs, gallops, or rubs. RESPIRATORY: Breath sounds equal bilaterally with no increased WOB. No accessory muscle use. ABDOMEN/GI: Abdomen soft, non-tender, w/o rebound or guarding. Fundus: Firm, non-tender below umbilicus. GENITOURINARY: Light to moderate bleeding. EXTREMITIES: No cyanosis or edema, non-tender, without signs of DVT. Medications and IVs Current Medications Medications (Trade) Dose Ordered Sig/Juan Route Start Time Stop Time Status Last Admin Lactated Ringer's 1,000 ml @ 125 mls/hr Q8H IV 03/31/17 05:54 Lactated Ringer's 1,000 ml @ 3,000 mls/hr Q20M PRN IV 03/31/17 05:54 (NS 1000 ml Inj) 1,000 ml @ 100 mls/hr Q10H PRN IV 03/31/17 06:14 (Zofran Inj) 4 mg Q6H PRN IV 03/31/17 06:00 (fentaNYL INJ) 50 mcg Q1H PRN IV PUSH 03/31/17 06:00 Fentanyl Citrate 100 mcg 100 mcg Q1H PRN IV PUSH 03/31/17 06:00 (Pfizerpen-G Inj/ NS Inj) 100 ml @ 200 mls/hr Q4H IV 03/31/17 10:00 (Muri-Lube Oil) 10 ml UNSCH PRN TOPICAL 03/31/17 06:00 (NS Flush) 2 ml BID IV FLUSH 03/31/17 09:00 (NS Flush) 2 ml UNSCH PRN IV FLUSH 03/31/17 06:30 (Tylenol) 650 mg Q4H PRN PO 03/31/17 06:30 04/01/17 06:32 (Motrin) 600 mg Q6H PRN PO 03/31/17 06:30 04/01/17 06:32 (Percocet 5-325 Mg) 1 tab Q4H PRN PO 03/31/17 06:30 04/01/17 00:33 (Percocet 5-325 Mg) 2 tab Q4H PRN PO 03/31/17 06:30 (Americaine 20% Top Spr) 1 spray Q4H PRN TOPICAL 03/31/17 06:30 (Tucks Pads) 1 applic QID PRN TOPICAL 03/31/17 06:30 (Jeanie-Colace) 2 tab Q12H PRN PO 03/31/17 06:30 03/31/17 12:42 (Mag-Al Plus Susp Liq) 15 ml Q8H PRN PO 03/31/17 06:30 (Zofran Odt) 4 mg Q6H PRN PO 03/31/17 06:30 Assessment/Plan Problem List: (1) (2) Labor without complication Assessment and Plan 32 YO delivered via at 38 5/7 and is progressing well on PPD1. - AFVSS - Routine care - Motrin, Tylenol and Percocet PRN pain - Encourage OOB - Pelvic rest x 6 wks - Contraception: pland tubal ligation as outpatient - Anticipate D/C 04/02 Dispo: home Discharge Planning 2 Days after vaginal delivery Dimas Juárez MD R1 Apr 01, 2017 08:49
[2017-04-01] MEDS: DOCUSATE SODIUM 50 MG/SENNA 8.6 MG TAB PO PRN (16:37)
[2017-04-01 19:35] VITALS: BP 109/69; PULSE 70; RESP 16; TEMP 98.1
[2017-04-01 21:24] VITALS: BP 101/58; PULSE 70; RESP 18
[2017-04-02] MEDS: oxyCODONE/ACETAMINOPHEN 5 MG/325 MG TAB PO PRN ×3 (01:11→11:06)
[2017-04-02] MEDS: IBUPROFEN 600 MG TAB PO PRN ×2 (01:12→06:55)
[2017-04-02] MEDS ORDERED: IBUP-232 PO (06:42)
--- NOTE | 2017-04-02 06:42 | HHI.DCPOC ---
Discharge Care Plan Diagnosis: (1) Spontaneous vaginal delivery Report Symptoms to Your Doctor -Temperature above 100.5 degrees -Redness, of incision or excessive or foul smelling drainage -Unusual pain or calf pain -Increased vaginal bleeding -Painful or difficulty urinating -Feelings of extreme sadness or anxiety after 2 weeks Goals to Promote Your Health * To prevent worsening of your condition and complications * To maintain your health at the optimal level Directions to Meet Your Goals Take your medications as prescribed Follow your dietary instruction Follow activity as directed Ensure plenty of rest for recovery Drink fluids for hydration Keep your appointments as scheduled Take your immunizations and boosters as scheduled If your symptoms worsen call your PCP, if no PCP go to Urgent Care Center or Emergency Room Smoking is Dangerous to Your Health. Avoid second hand smoke Call the 24-hour crisis hotline for domestic abuse at Shola Kothari MD R1 Apr 02, 2017 06:42
[2017-04-02] MEDS ORDERED: ACET1TAB86 PO (07:22)
--- NOTE | 2017-04-02 08:16 | HHI.OB ---
Subjective Post Day: 2 Remarks Pt meeting post-op goals and ready to discharge. Pt desires d/c instructions to allow for walking as tolerated due to pain when on her feet for prolonged period. Denies CP, SOB, DVT, N/V/D. (Dimas Juárez MD R1) Objective Vitals/I&O Vital Signs Date Time Temp Pulse Resp B/P Pulse Ox O2 Delivery O2 Flow Rate FiO2 04/01/17 21:24 70 18 101/58 04/01/17 19:35 70 16 109/69 04/01/17 19:35 98.1 04/01/17 08:18 97.9 67 16 102/66 Objective Remarks GENERAL: WDWN female lying in bed comforting her infant. CARDIOVASCULAR: RRR without murmurs, gallops, or rubs. RESPIRATORY: Breath sounds equal bilaterally with no increased WOB. No accessory muscle use. ABDOMEN/GI: Abdomen soft, non-tender, w/o rebound or guarding. Fundus: Firm, non-tender below umbilicus. GENITOURINARY: Light to moderate bleeding. EXTREMITIES: No cyanosis or edema, non-tender, without signs of DVT. Medications and IVs Current Medications Medications (Trade) Dose Ordered Sig/Juan Route Start Time Stop Time Status Last Admin Lactated Ringer's 1,000 ml @ 125 mls/hr Q8H IV 03/31/17 05:54 Lactated Ringer's 1,000 ml @ 3,000 mls/hr Q20M PRN IV 03/31/17 05:54 (NS 1000 ml Inj) 1,000 ml @ 100 mls/hr Q10H PRN IV 03/31/17 06:14 (Zofran Inj) 4 mg Q6H PRN IV 03/31/17 06:00 (fentaNYL INJ) 50 mcg Q1H PRN IV PUSH 03/31/17 06:00 Fentanyl Citrate 100 mcg 100 mcg Q1H PRN IV PUSH 03/31/17 06:00 (Pfizerpen-G Inj/ NS Inj) 100 ml @ 200 mls/hr Q4H IV 03/31/17 10:00 (Muri-Lube Oil) 10 ml UNSCH PRN TOPICAL 03/31/17 06:00 (NS Flush) 2 ml BID IV FLUSH 03/31/17 09:00 (NS Flush) 2 ml UNSCH PRN IV FLUSH 03/31/17 06:30 (Tylenol) 650 mg Q4H PRN PO 03/31/17 06:30 04/01/17 16:38 (Motrin) 600 mg Q6H PRN PO 03/31/17 06:30 04/02/17 06:55 (Percocet 5-325 Mg) 1 tab Q4H PRN PO 03/31/17 06:30 04/02/17 06:55 (Percocet 5-325 Mg) 2 tab Q4H PRN PO 03/31/17 06:30 (Americaine 20% Top Spr) 1 spray Q4H PRN TOPICAL 03/31/17 06:30 (Tucks Pads) 1 applic QID PRN TOPICAL 03/31/17 06:30 (Jeanie-Colace) 2 tab Q12H PRN PO 03/31/17 06:30 04/01/17 16:37 (Mag-Al Plus Susp Liq) 15 ml Q8H PRN PO 03/31/17 06:30 (Zofran Odt) 4 mg Q6H PRN PO 03/31/17 06:30 (Dimas Juárez MD R1) Assessment/Plan Problem List: (1) (2) Labor without complication Assessment and Plan 32 YO delivered via at 38 5/7 and is progressing well on PPD2. - AFVSS - Routine care - Motrin, Tylenol for PRN pain; pt advised to alternate each for synergistic pain control - Encourage OOB - Pelvic rest x 6 wks - Contraception: tubal ligation as outpatient - D/C 04/02 Dispo: home Discharge Planning 04/02/17 (Dimas Juárez MD R1) Attending Attestation The exam, history, and the medical decision-making described in the above note were completed with the assistance of the resident provider. I reviewed and agree with the findings presented. I attest that I had a [id number] encounter with the patient on the same day, and personally performed and documented my assessment and findings in the medical record. (Gely Ho MD) Dimas Juárez MD R1 Apr 02, 2017 08:15 Gely Ho MD Apr 02, 2017 09:22
[2017-04-02 09:00] VITALS: BP 95/61; PULSE 65; RESP 16; TEMP 98
== END 2017-04-02 14:50 | disposition home or self-care (01) | DRG 775 ==
LOC: HOBED 05:17 → H2EA 05:42 → H1EA 08:12
PROVIDERS: ADMIT Obstetrics & Gynecology Obstetrics; ATTEND Obstetrics & Gynecology Obstetrics
PROC: 10E0XZZ Delivery of Products of Conception, External Approach (ICD-10-PCS; principal; 2017-03-31)
PROC: 10907ZC Drainage of Amniotic Fluid, Therapeutic from Products of Conception, Via Natural or Artificial Opening (ICD-10-PCS; 2017-03-31)
DX: O99.824 Streptococcus B carrier state complicating childbirth (principal); Z37.0 Single live birth; Z3A.38 38 weeks gestation of pregnancy
CPT/HCPCS: 80307; 81001; 85025; 90715; G0481; J2590

== ENCOUNTER → 2017-06-19 | Day surgery (SDC) | payer OTHER ==
--- NOTE | 2017-06-17 16:18 | MH ---
cc: JENNIFER FONSECA,GERARD MEHTA,DOROTHY Chao MD DATE OF ADMISSION: 06/19/2017 DATE OF : 1985 REASON FOR ADMISSION Laparoscopic sterilization. HISTORY OF PRESENT ILLNESS The patient is a 32-year-old black female, 7, para 5, with desire for permanent sterilization. PAST MEDICAL HISTORY The patient's medical history is notable for substance abuse. She has presently completed a rehab stint at [facility] and is doing well at this time. Otherwise negative for heart, lung, liver disease, hypertension, diabetes or stroke. PAST SURGICAL HISTORY Ectopic with laparoscopy. [employer] REPRESENTATIVE HISTORY No STDs or abnormal Pap smears. OB HISTORY Five vaginal deliveries. FAMILY HISTORY Noncontributory. SOCIAL HISTORY Presently in recovery doing well. No tobacco or drugs at this time. . Good social support. ALLERGIES 1. TRAMADOL. 2. AMBIEN. REVIEW OF SYSTEMS As above. No chest pain, orthopnea, PND. No nausea, vomiting, fever, chills. No vaginal bleeding or discharge. PHYSICAL EXAMINATION VITAL SIGNS: Vital signs are stable. Height 5 feet 5, weight 152, BMI 25.2. Blood pressure 113/58. GENERAL: The patient is alert and oriented, in no acute distress. No sign of cognitive dysfunction or depression. HEENT: Within normal limits. NECK: Supple. No JVD. CHEST: Clear. HEART: Regular rate and rhythm. ABDOMEN: Soft, nontender. No hepatosplenomegaly. No CVA tenderness. PELVIC: Exam will be detailed under anesthesia. EXTREMITIES: Warm. SKIN: Without rashes. NEUROLOGIC: Nonfocal. No DVT signs. ASSESSMENT 1. Patient with multiparity, desires sterilization. 2. Patient with history of substance abuse, presently in rehab in recovery. 3. Patient with history of ectopic with laparoscopy. DISCUSSION/PLAN The patient and I discussed options for management and treatment. She wants to proceed with laparoscopic salpingectomy. She is aware of the risks, benefits and alternatives of planned procedure including damage to surrounding organs, bleeding, infection, need for open procedure, infertility, failure of procedure, pelvic pain and discomfort. She is also aware that there will be small incisions that may be visible and some issues with scarring are possible. The patient has made an formed choice to proceed. Will use DVT prophylaxis with sequential compression device and antibiotic prophylaxis with Ancef 2 grams. Postoperatively we will not be using any narcotics for postoperative care as an outpatient. Will use Toradol in light of her tramadol allergy. MD KARISHMA Park/JESSICA /10:14 AM /4:10 PM
[~2017-06-19] VITALS: Ht 165.1 cm; Wt 72.3 kg
[~2017-06-19] MED LIST changes: +ACETAMINOPHEN 1000 MG/100 ML 100 ML IV ONE; +CHLORHEXIDINE GLUCONATE 2 % 1 PACK (2 CLOTHS) TOPICAL PRN; +DEXAMETHASONE SOD PHOS 4 MG/ML VIAL IV ONE; +DO NOT ADM ANY ANTICOAGULANT DRUGS PRN; +ESMOLOL HCL 100 MG/10 ML VIAL IV ONE; +GABAPENTIN 300 MG CAP PO PRN; +GLYCOPYRROLATE 1 MG/5 ML SYRINGE IV PUSH ONE; +IBUP-232 PO; +INSULIN HUMAN REGULAR 1,000 UNITS/10 ML VIAL SQ PRN; +KETAMINE HCL 500 MG/5 ML VIAL ONE; +KETOROLAC TROMETHAMINE 30 MG/ML (IVP) VIAL IV PUSH ONE; +KETOROLAC TROMETHAMINE 30 MG/ML (IVP) VIAL IV PUSH PRN; +KETOROLAC TROMETHAMINE 60 MG/2 ML (IM) VIAL IM PRN; +LACTATED RINGER'S 1000 ML IV PRN; +LIDOCAINE 0.5%/EPINEPHrine 1:200,000 SOLN 50 ML VIAL ONE; +LIDOCAINE HCL 1% PF 5 ML AMPULE OTHER ONE; +METOPROLOL TARTRATE 25 MG TAB PO PRN; +MIDAZOLAM HCL 2 MG/2 ML VIAL IV ONE; +NEOSTIGMINE 3 MG/3 ML SYR IV ONE; +ONDANSETRON HCL 4 MG/2 ML VIAL IV PUSH ONE; +ONDANSETRON HCL 4 MG/2 ML VIAL IV PUSH PRN; +PHENYLEPH/NS 1000 MCG/10 ML SYR IV ONE; +POVIDONE IODINE 5% (ANTISEPSIS KIT) 4 APPLICATIONS EACH NARE PRN; -PREN1PAK2 PO; +PROPOFOL 200 MG/20 ML AMP IV ONE; +ROCURONIUM INJ 50 MG/5 ML VIAL IV ONE; +SODIUM CHLORID 0.9% 500 ML IV PRN; +SODIUM CHLORIDE 0.9% 20 ML VIAL IV ONE
[2017-06-19] MEDS: ceFAZolin 2 GM PREMIX 50 ML IV SCH ×2 (07:04→08:54)
[2017-06-19 09:35] VITALS: TEMP 98.6
[2017-06-19 10:56] VITALS: BP 96/53; PULSE 61
--- NOTE | 2017-06-19 11:11 | PD.OP ---
Operative Report Date of Surgery: Jun 19, 2017 Preoperative Diagnosis: DESIRES STERILIZATION Postoperative Diagnosis: DESIRES STERILIZATION HYPEREMIC RIGHT TUBE ABSENT LEFT TUBE UMBILICAL HERNIA 3 CM Procedure: LAPAROSCOPIC SALPINGECTOMY UMBILICAL HERNIA REPAIR Anesthesia: GETA/OGT Surgeon: Huseyin Horton Performance Test Architect(s): [facility] [place] Operation and Findings: SEE DICTATED NOTE Huseyin Horton MD Jun 19, 2017 11:11
--- NOTE | 2017-06-19 19:51 | MP ---
cc: GERARD BLANCO MD, JESSE S. MD DATE OF SURGERY 06/19/17 PREOPERATIVE DIAGNOSIS Multiparity, desires sterilization. POSTOPERATIVE DIAGNOSES Multiparity, desires sterilization. Umbilical hernia. Right hyperemic tube. History of left salpingectomy for ectopic . PROCEDURE 1. Laparoscopic right salpingectomy. 2. Repair of umbilical hernia. SURGEON MD Clifford ANESTHESIA General endotracheal with a G tube. LEGAL SUPPORT SPECIALIST [place] staff x1. BLOOD LOSS Less than 5 cc. URINE OUTPUT 200 cc. FLUIDS 1000 cc crystalloid. FINDINGS External genitalia normal: POP-Q score: Aa is -1, Ap is -1. Point C is -6. Total vaginal length is 10. Genital hiatus is 8. Perineal body is 4. Uterus is boggy, anteverted and anteflexed. Left tube is surgically absent consistent with history of prior ectopic . Left pelvis otherwise unremarkable. Right tube is hyperemic with small adhesions to the pelvic sidewall. No sign of hydrosalpinx. Ovary normal. Upper abdomen normal. Appendix normal. The umbilical hernia noted on entry into the abdominal cavity. SPECIMENS Right tube. COMPLICATIONS None. DISPOSITION To recovery stable. COUNTS Needle, sponge count correct. DRAINS [place] catheter. ANTIBIOTICS PROPHYLAXIS Ancef 2 grams. DVT PROPHYLAXIS Sequential compression device. TIME-OUT PROCEDURE Per protocol. SUMMARY OF INDICATIONS FOR PROCEDURE Patient with a history of multiparity, desires sterilization. Also, has a history of left ectopic with presumed salpingectomy. The patient history of substance abuse, is presently in the rehab and is doing well. Would like to forgo any narcotic medications if possible. PROCEDURE IN DETAIL The patient was taken to the operating room theater, prepped and draped in fashion appropriate for planned procedure. She was in the dorsal lithotomy position with careful attention paid to placement of legs in stirrups to avoid undue stress to sensitive neurovascular structures. Above findings noted. Neurovascular integrity documented. Meadows catheter was placed. The umbilicus was identified, infiltrated with epinephrine and Marcaine solution. There was approximately a 3 cm hernia here. We did elevate this area and entered it carefully to make sure there was no damage to underlying bowel contents. A 5 mm scope was placed under direct visualization, the above findings noted. Trendelenburg position instituted. The 8-mm suprapubic trocar was placed under direct visualization. A 5 mm trocar was placed in the left lower quadrant under direct visualization. Left tube was surgically absent as expected. The ovary was normal. The tube on the right was hyperemic and had small adhesions but no sign of hydrosalpinx or other significant abnormality. Tube was removed coming across the mesosalpinx with Harmonic energy down to the cornu with good result. Good hemostasis with and without gas pressure. Pelvis was inspected. Trocars were removed under direct visualization. Inspected the umbilical entry port from the suprapubic port and noted there was no damage to any contents of the abdomen. Gas was expressed. The umbilical hernia was repaired in standard fashion with ___ absorbable suture with good result. The incisions were closed with 4-0 Monocryl and Dermabond. The patient tolerated well, went to recovery in stable condition. MD KARISHMA Park/OJ /9:11 AM /7:09 PM
== END | disposition home or self-care (01) ==
LOC: HSDC 05:46
PROVIDERS: ATTEND Obstetrics & Gynecology Gynecology
DX: Z30.2 Encounter for sterilization (principal); K42.9 Umbilical hernia without obstruction or gangrene; Z90.79 Acquired absence of other genital organ(s)
CPT/HCPCS: 00840; 49652; 58661; 88302; J0131; J0690; J7120; J1100; J1885; J2250; J2370; J2405; J2710; J3010